=== PATIENT | male | born 1980 | race Caucasian/White ===

== ENCOUNTER 2017-01-30 18:33 | Emergency (ER) | payer OTHER ==
[~2017-01-30] VITALS: Ht 185.4 cm; Wt 99.8 kg
[~2017-01-30 18:33] MED LIST: CARAFATE1 GM/10 ML PO; NOHOMEMEDICATIONS; NORCO 5-325 TA1 EACH PO; PROTONIX40 MG PO
[2017-01-30 21:15] VITALS: BP 141/84
== END 2017-01-30 21:15 | disposition home or self-care (01) ==
LOC: ER 18:33
DX: S60.041A Contusion of right ring finger without damage to nail, initial encounter (principal); D16.11 Benign neoplasm of short bones of right upper limb; F10.99 Alcohol use, unspecified with unspecified alcohol-induced disorder; X58.XXXA Exposure to other specified factors, initial encounter; Y93.54 Activity, bowling; Y92.89 Other specified places as the place of occurrence of the external cause; Y99.8 Other external cause status

== ENCOUNTER 2017-03-27 23:37 | Emergency (ER) | payer OTHER ==
[~2017-03-27] VITALS: Ht 188 cm; Wt 99.8 kg
[2017-03-27] MEDS ORDERED: CLONAZEPAM 0.50.5 M1 PO (23:47)
[2017-03-28] MEDS ORDERED: IBUPROFEN 800800 MG PO (00:42)
[2017-03-28] MEDS ORDERED: NORCO 5-325 TA1 EACH PO (00:42)
[2017-03-28 01:04] VITALS: BP 127/84
== END 2017-03-28 01:06 | disposition home or self-care (01) ==
LOC: ER 23:37
DX: S30.0XXA Contusion of lower back and pelvis, initial encounter (principal); S20.229A Contusion of unspecified back wall of thorax, initial encounter; S50.812A Abrasion of left forearm, initial encounter; F10.99 Alcohol use, unspecified with unspecified alcohol-induced disorder; W10.8XXA Fall (on) (from) other stairs and steps, initial encounter; Y93.89 Activity, other specified; Y92.89 Other specified places as the place of occurrence of the external cause; Y99.8 Other external cause status

== ENCOUNTER 2017-08-04 12:44 | Observation (INO) | payer OTHER ==
[~2017-08-04] VITALS: Ht 188 cm; Wt 98.0 kg
[~2017-08-04 12:44] MED LIST changes: +CLONAZEPAM 0.50.5 M1 PO; +IBUPROFEN 800800 MG PO
[2017-08-04 12:49] VITALS: BP 116/83
[2017-08-04 13:33] LABS: ABSOLUTE NEUTROPHILS 3.5 thou/uL (1.4-8.2); BASOPHILS 0.3 % (0.0-2.0); EOSINOPHILS 3.6 % (0.0-3.0); HEMATOCRIT 38.5 % (42.0-52.0); HEMOGLOBIN 13.6 gm/dL (14.0-18.0); LYMPHOCYTES 24.2 % (24.0-44.0); MCHC 35.2 g/dL (28.0-37.0); MCV 85.1 fL (80.0-100.0); PLATELET COUNT 123 thou/uL (150-400); POLYS 64.9 % (36.0-66.0); RBC 4.53 mil/uL (4.50-6.00); RDW 13.8 % (10.5-14.5); WBC 5.4 thou/uL (4.0-11.0)
[2017-08-04 13:46] LABS: CALCIUM 9.1 mg/dL (8.5-10.1); CREATININE 1.3 mg/dL (0.7-1.3); POTASSIUM 3.6 mmol/L (3.5-5.1)
[2017-08-04 15:19] VITALS: BP 116/83
[2017-08-04] MEDS ORDERED: DEPAKOTE ER500 MG PO (16:41)
[2017-08-04] MEDS ORDERED: NEURONTIN 300300 M1 PO (16:42)
[2017-08-04 16:46] VITALS: BP 126/76
[2017-08-04 19:40] VITALS: BP 121/80
[2017-08-05 02:41] VITALS: BP 119/80
[2017-08-05 05:37] LABS: URINE BILIRUBIN NEGATIVE (Negative); URINE BLOOD NEGATIVE (Negative); URINE CLARITY CLEAR; URINE COLOR YELLOW; URINE GLUCOSE-RANDOM* NEGATIVE (Negative); URINE KETONES NEGATIVE (Negative); URINE LEUKOCYTES NEGATIVE (Negative); URINE NITRITE NEGATIVE (Negative); URINE PROTEIN (DIPSTICK) NEGATIVE (Negative); URINE UROBILINOGEN 0.2 E.U./dl (0.2-1.0)
[2017-08-05 05:45] LABS: AMP/METHAMP Negative (Negative); BARBITURATES Negative (Negative); BENZODIAZEPINES Negative (Negative); COCAINE Negative (Negative); METHADONE Negative (Negative); OPIATES POSITIVE (Negative); PCP Negative (Negative)
[2017-08-05 05:46] LABS: HEMATOCRIT 35.9 % (42.0-52.0); HEMOGLOBIN 12.6 gm/dL (14.0-18.0); MCH 30.3 pg (26.0-34.0); MCHC 35.2 g/dL (28.0-37.0); MCV 86.1 fL (80.0-100.0); RBC 4.18 mil/uL (4.50-6.00); RDW 13.8 % (10.5-14.5); WBC 3.5 thou/uL (4.0-11.0)
[2017-08-05 06:03] LABS: CALCIUM 8.1 mg/dL (8.5-10.1); CREATININE 1.2 mg/dL (0.7-1.3); POTASSIUM 3.6 mmol/L (3.5-5.1)
[2017-08-05 06:32] LABS: SALICYLATE < 2.8 mg/dL (2.8-20.0)
[2017-08-05 08:47] VITALS: BP 119/80
[2017-09-08] MEDS ORDERED: ESCITALOPRAM OXA5 MG PO (13:50)
[2017-09-08] MEDS ORDERED: GENVOYA TABLET1 EACH PO (13:50)
[2017-09-08] MEDS ORDERED: OXCARBAZEPINE300 M1 PO (14:29)
[2018-02-02] MEDS ORDERED: DOXEPIN 25 MG C25 MG PO (17:23)
[2018-02-02] MEDS ORDERED: VITAMIN D2000 UNIT PO (17:24)
[2018-02-02] MEDS ORDERED: CLONAZEPAM 1 MG1 M1 PO (18:50)
[2018-02-02] MEDS ORDERED: TRAMADOL 50 MG50 MG PO (19:22)
[2018-02-02] MEDS ORDERED: NAPROSYN500 MG PO (19:22)
== END 2017-08-05 09:13 | disposition home or self-care (01) ==
LOC: ER 12:44 → EROBS 14:58 → 4S 14:58
PROVIDERS: Emergency Medicine; Hospitalist; Nurse Practitioner Acute Care
DX: R41.82 Altered mental status, unspecified (principal); D33.2 Benign neoplasm of brain, unspecified; Z79.899 Other long term (current) drug therapy; G89.29 Other chronic pain; F32.9 Major depressive disorder, single episode, unspecified
CPT/HCPCS: 10100

== ENCOUNTER 2017-08-30 14:18 | Emergency (ER) | payer OTHER ==
[~2017-08-30] VITALS: Ht 188 cm; Wt 95.7 kg
[~2017-08-30 14:18] MED LIST changes: +DEPAKOTE ER500 MG PO; +NEURONTIN 300300 M1 PO
[2017-08-30] MEDS ORDERED: CLONAZEPAM 1 MG1 M1 PO (15:01)
[2017-08-30 15:06] VITALS: BP 103/54
[2017-09-08] MEDS ORDERED: GENVOYA TABLET1 EACH PO (13:50)
[2017-09-08] MEDS ORDERED: ESCITALOPRAM OXA5 MG PO (13:50)
[2017-09-08] MEDS ORDERED: OXCARBAZEPINE300 M1 PO (14:29)
[2018-02-02] MEDS ORDERED: DOXEPIN 25 MG C25 MG PO (17:23)
[2018-02-02] MEDS ORDERED: VITAMIN D2000 UNIT PO (17:24)
[2018-02-02] MEDS ORDERED: CLONAZEPAM 1 MG1 M1 PO (18:50)
[2018-02-02] MEDS ORDERED: TRAMADOL 50 MG50 MG PO (19:22)
[2018-02-02] MEDS ORDERED: NAPROSYN500 MG PO (19:22)
== END 2017-08-30 15:35 | disposition home or self-care (01) ==
LOC: ER 14:18
DX: G89.29 Other chronic pain (principal); R51 Headache; F41.9 Anxiety disorder, unspecified; F31.9 Bipolar disorder, unspecified; Z91.040 Latex allergy status

== ENCOUNTER → 2017-09-08 | Outpatient (CLI) | payer OTHER ==
[~2017-09-08] VITALS: Ht 188 cm; Wt 101.2 kg
[~2017-09-08] MED LIST changes: +CLONAZEPAM 1 MG1 M1 PO; +DOXEPIN 25 MG C25 MG PO; +ESCITALOPRAM OXA5 MG PO; +GENVOYA TABLET1 EACH PO; +NAPROSYN500 MG PO; +OXCARBAZEPINE300 M1 PO; +TRAMADOL 50 MG50 MG PO; +VITAMIN D2000 UNIT PO
--- NOTE | ~2017-09-08 | HPC ---
[facility] [place] [address] PAIN MANAGEMENT CONSULTATION Name: MASOOD LOPEZ Room #: REG FARHAD RayPaulaHardyPaula#: [id number] Admission: 09/08/17 Attend Phys: Susan Benedict MD Discharge: Date of : 82 Report #: [id number] THIS REPORT FOR: //name// CC: [facility] physician/PCP Susan Waterman MD DATE OF SERVICE: 09/08/2017 PRIMARY CARE PHYSICIAN: The patient states that he does not have a family doctor. FOLLOWUP COMPLAINT: "Pain over my left eye." FOLLOWUP HISTORY: The patient is a 37-year-old gentleman, who has been referred to the pain clinic because of chronic pain and discomfort. He states that this started about 02/2016. He developed a constant discomfort over his left eye. He denies any significant trauma. He states that the pain continues to be problematic. It is in the same area right over the middle portion of his left eye. There is a sensation of pressure, throbbing, and shooting at time. He is not aware of anything that has been significantly helpful in the past. He has tried a number of medications, all the names of which he could not recall. Medication that has been the most effective at this juncture is hydrocodone 5 one to two tablets every 4-6 hours p.r.n. 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 It appears that the lesion is benign. He states that he feels somewhat like a hammer pushing against the spot. He states that he has been seen by several physicians in a number of pain clinics and has had CT, MRI, and spinal tap with no significant pathological findings other than the lesion in the brain area. He is scheduled to undergo a QEEG. The patient saw a neurosurgeon, who told him that he could remove the noncancerous tumor, but because of its location, he could lose his eyesight. The patient is HIV positive, but it is not thought that this is causing his pain. ALLERGIES: No known drug allergies. MEDICATIONS: Escitalopram 5 mg, Elviteg/Reta/Tenofo Ala (Genvoya tablet daily), clonazepam 1 mg t.i.d. as needed for anxiety, and hydrocodone 5/325 one to two tablets p.o. q.4 hours p.r.n. MEDICATIONS USED IN THE PAST: Butrans patch 1 patch weekly. The patient had placed 2 patches on in July. He had some mental confusion secondary to over sedate medication, but was not felt to have any suicidal ideation or intention. He has used doxepin, gabapentin, and Trileptal. PAST MEDICAL HISTORY: HIV positive. 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 SOCIAL HISTORY: He is working as a LODGING FACILITIES MANAGER. The patient just lost his job. He was told that he had missed too many days/hours working. REVIEW OF SYSTEMS: Questionnaire in the chart indicates generally good health; headaches; blurred vision on occasion; ringing in the ears, on the left side, stopped in 2016; lightheadedness; dizziness; depression; insomnia; heat or cold intolerance. LABORATORY DATA: No laboratory values are available at the time of our interview. The patient states he is undergoing a QEEG in the near future. CLINICAL ASSESSMENT: 1. History of osteoarthritis. 2. History of rheumatoid arthritis. 3. Height 6 feet 2 inches, weight 223 pounds, and BMI is 28. 4. Vital signs: Blood pressure 128/87, pulse 85, respiratory rate 16, and room air saturation 96%. 5. Pain intensity today 6, average. 6. Fall risk. The patient has not had any problems with standing and is not a fall risk, has not fallen in the last 3 months. 7. The patient is not on any blood thinner. 8. The patient is not being treated for hypertension. 9. Opioid therapy. The patient has used opioids for some period of time, does not have a contract with our clinic. 10. Risk assessment tool. 11. Functional assessment tool. Pain impact score indicates 36/70 in regard to general activity, mood, walking ability, working, relationships with others, sleep, and enjoyment of life. 12. Recreational drugs. The patient denies use of recreational drugs. Denies use of tobacco. Denies frequent use of alcohol and uses it on special occasions. PHYSICAL EXAMINATION: GENERAL: The patient is a well-developed, well-nourished white male. Appears his stated age. He is alert and oriented x 3. Affect appears appropriate. HEENT: Normocephalic, atraumatic. The patient has some pain and discomfort over the left eye, which is constant and does not "go away". Nasal area is unremarkable. Extraocular eye muscles intact. NECK: Without JVD, masses, or bruits. LUNGS: Clear in the bases bilaterally. HEART: Regular rate. Normal S1 and S2. MUSCULOSKELETAL: Appears normal alignment without scoliosis, kyphosis, or lordosis. Upper extremity strength is judged to be 5/5 for the major muscle [facility] [address] [place] [address] PAIN MANAGEMENT CONSULTATION Name: MASOOD LOPEZ Room #: REG [facility]#: [id number] Admission: 09/08/17 Attend Phys: Susan Benedict MD Discharge: Date of : 82 Report #: [id number] groups. Deep tendon reflexes are +2 at the biceps, +1 triceps, and trace brachioradialis bilaterally. The patient is able to flex approximately 90 degrees, touch his toes. Lumbar extension is performed without significant problems. Left and right lateral bending, left and right lateral rotation were unremarkable. Deep tendon reflexes are +2 at the knees and ankles bilaterally. Muscle strength is judged to be 5/5 for the major muscle groups in the lower extremity. The patient is able to toe walk and heel walk. Palpation over the left supraorbital nerve causes some pain and reproduction of the patient's pain. IMPRESSION: 1. 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 2. Chronic headache pain for about 1-1/2 years. RECOMMENDATIONS: We discussed treatment options with the patient. Examination shows pain and discomfort in the area of the left supraorbital nerve. We discussed the possible options. We will proceed with a trial of Lyrica 75 mg daily and increase this as he is able to tolerate it. We will consider local anesthetic and steroid to the supraorbital nerve to see whether or not this helps to decrease and lessen the pain and discomfort. He will take Lyrica as described. He will return in the pain clinic, at which time injection over the left eye in the area of the supraorbital nerve block will be performed. We would like to thank you for letting us to participate in his care. We hope he continues to improve. <ELECTRONICALLY SIGNED> By: Susan Benedict MD 10/18/17 1415 1351 1749 Susan Benedict MD /nt
[2017-09-08 13:48] VITALS: BP 128/87
== END ==
LOC: PAIN 07:33
DX: H57.12 Ocular pain, left eye (principal); G89.29 Other chronic pain; M19.90 Unspecified osteoarthritis, unspecified site; Z79.891 Long term (current) use of opiate analgesic

== ENCOUNTER → 2017-09-20 | Outpatient (CLI) | payer OTHER ==
[~2017-09-20] VITALS: Ht 188 cm; Wt 101.9 kg
--- NOTE | ~2017-09-20 | HPC ---
[facility] [place] [address] PAIN MANAGEMENT CONSULTATION Name: MASOOD LOPEZ Room #: [id number] Admission: 09/20/17 Attend Phys: Susan Benedict MD Discharge: Date of : 82 Report #: [id number] THIS REPORT FOR: //name// CC: [facility] physician/PCP Susan Waterman MD DATE OF SERVICE: 09/20/2017 CHIEF COMPLAINT: Pain over the left eyebrow. HISTORY OF PRESENT ILLNESS: The patient is a 37-year-old gentleman who has been referred to the pain clinic for evaluation. The patient has a history of pain over the left eye area. Denies any significant trauma. Notes that it has been problematic since 02/2016. He has continued to have the discomfort. He has undergone a number of treatment options. He notes that the pain is throbbing in nature. There is a sensation of pressure that is there at all times. He has had a brain evaluation. Note was made of a lesion in the posterior portion of his brain, which was inoperable. It is felt that this was not the reason for his pain. There was no significant pathology associated with this lesion. He continues to use opioid medications to help maintain pain control. ALLERGIES: No known drug allergies. MEDICATIONS: Have been reviewed and they are escitalopram 5 mg, daily, clonazepam 1 mg t.i.d. as needed for anxiety and hydrocodone 5/325 one to two tablets every 4-6 hours p.r.n. pain. PHYSICAL EXAMINATION: GENERAL: The patient is a well-developed, well-nourished white male. Appears his stated age, in no significant distress. He is alert and oriented x 3. His affect is appropriate. HEENT: Normocephalic, atraumatic. The patient has pain and discomfort over the left supraorbital area and notes pain and discomfort in this area with palpation. Denies any significant problems with extraocular eye movements and muscles. NECK: Without JVD or bruits. LUNGS: Clear to auscultation bilaterally. HEART: Regular rate, normal S1, S2. MUSCULOSKELETAL: Unremarkable without scoliosis, kyphosis or lordosis. Lower extremity is within normal limits. Cranial nerve function 2-12 within normal limits. Deep tendon reflexes in the biceps +2, triceps +1, trace brachial radialis. IMPRESSION: 1. Chronic pain over the left supraorbital nerve distribution. [address] [address] PAIN MANAGEMENT CONSULTATION Name: MASOOD LOPEZ [id number] Admission: 09/20/17 Attend Phys: Susan Benedict MD Discharge: Date of : 82 Report #: [id number] 2. Chronic headaches for about 1-1/2 years. 3. The patient is HIV positive. RECOMMENDATIONS: We discussed treatment options with the patient. The possibility of blocking this nerve with local anesthetic and steroid was discussed. We discussed the treatment options with the patient. Risks and benefits of an injection in the supraorbital area were discussed. They include infection, increased muscle soreness, worsening of pain, eye damage. The patient elects to proceed. PROCEDURE NOTE: The patient was placed in the supine position. A towel was placed above his eyes. Chlorhexidine solution was placed on the supraorbital area. The supraorbital nerve was palpated. The area about 1 inch above his left eyebrow in the area of the supraorbital nerve was tender to palpation and uncomfortable. A 27-gauge needle was then placed in the area of the supraorbital orbital/greater trochlear nerve and a total of 3 mL of 0.5% bupivacaine and 40 mg triamcinolone was injected. The patient tolerated the procedure well. He will follow up in the future as needed. We would like to thank you for letting us participate in his care. We hope he continues to improve. The patient underwent a supraorbital nerve block. <ELECTRONICALLY SIGNED> By: Susan Benedict MD 10/18/17 1424 [id number] Susan Benedict MD /PREETI
[2017-09-20 10:51] VITALS: BP 124/85
== END ==
LOC: PAIN 06:43
DX: M79.2 Neuralgia and neuritis, unspecified (principal); R51 Headache; R41.82 Altered mental status, unspecified; Z79.891 Long term (current) use of opiate analgesic; Z91.040 Latex allergy status; Z79.899 Other long term (current) drug therapy

== ENCOUNTER 2018-08-22 11:40 | Emergency (ER) | payer OTHER ==
[~2018-08-22] VITALS: Ht 188 cm; Wt 99.8 kg
[2018-08-22] MEDS ORDERED: GENVOYA TABLET1 EACH PO (11:49)
[2018-08-22] MEDS ORDERED: PEXEVA40 MG PO (11:51)
[2018-08-22 13:17] LABS: ABSOLUTE NEUTROPHILS 2.8 thou/uL (1.4-8.2); BASOPHILS 0.4 % (0.0-2.0); EOSINOPHILS 2.5 % (0.0-3.0); HEMATOCRIT 40.4 % (42.0-52.0); HEMOGLOBIN 14.2 gm/dL (14.0-18.0); LYMPHOCYTES 23.3 % (24.0-44.0); MCH 31.5 pg (26.0-34.0); MCHC 35.2 g/dL (28.0-37.0); MCV 89.6 fL (80.0-100.0); MONOCYTES 8.5 % (1.0-8.0); PLATELET COUNT 148 thou/uL (150-400); POLYS 65.3 % (36.0-66.0); RBC 4.51 mil/uL (4.50-6.00); RDW 15.2 % (10.5-14.5); WBC 4.3 thou/uL (4.0-11.0)
[2018-08-22 13:25] LABS: CALCIUM 9.2 mg/dL (8.5-10.1); CREATININE 1.3 mg/dL (0.7-1.3); POTASSIUM 4.2 mmol/L (3.5-5.1)
[2018-08-22 13:31] LABS: ALBUMIN 4.2 g/dL (3.4-5.0); TOTAL BILIRUBIN 0.7 mg/dL (<0.1-1.0); TOTAL PROTEIN 7.5 g/dL (6.4-8.2)
[2018-08-22] MEDS ORDERED: FLONASE 0.05%50 MCG NASAL (13:40)
[2018-08-22] MEDS ORDERED: TRUVADA1 EAC1 PO (13:40)
[2018-08-22] MEDS ORDERED: REMERON15 MG PO (13:41)
[2018-08-22 15:00] VITALS: BP 132/80
== END 2018-08-22 15:00 | disposition home or self-care (01) ==
LOC: ER 11:40
PROVIDERS: Emergency Medicine
DX: J04.0 Acute laryngitis (principal); R13.10 Dysphagia, unspecified; Z91.040 Latex allergy status; Z88.6 Allergy status to analgesic agent

== ENCOUNTER 2018-11-24 16:43 | Emergency (ER) | payer OTHER ==
[~2018-11-24] VITALS: Ht 188 cm; Wt 104.3 kg
[~2018-11-24 16:43] MED LIST changes: +FLONASE 0.05%50 MCG NASAL; +PEXEVA40 MG PO; +REMERON15 MG PO; +TRUVADA1 EAC1 PO
[2018-11-24 19:01] VITALS: BP 123/74
== END 2018-11-24 18:50 | disposition home or self-care (01) ==
LOC: ER 16:43
DX: G89.18 Other acute postprocedural pain (principal); Z98.890 Other specified postprocedural states; Z21 Asymptomatic human immunodeficiency virus [HIV] infection status; Z88.5 Allergy status to narcotic agent; Z91.040 Latex allergy status

== ENCOUNTER 2018-11-30 08:31 | Emergency (ER) | payer OTHER ==
[~2018-11-30] VITALS: Ht 188 cm; Wt 104.3 kg
[2018-11-30] MEDS ORDERED: ZANTAC 150MG T150 MG PO (08:58)
[2018-11-30] MEDS ORDERED: GENVOYA TABLET1 EACH PO (08:59)
[2018-11-30 09:53] VITALS: BP 131/81
[2018-11-30] MEDS ORDERED: NORCO 5-325 TA1 EACH PO (09:55)
[2018-11-30] MEDS ORDERED: KEFLEX500 M1 PO (09:55)
== END 2018-11-30 10:00 | disposition home or self-care (01) ==
LOC: ER 08:31
DX: T81.30XA Disruption of wound, unspecified, initial encounter (principal); L03.011 Cellulitis of right finger; Z91.040 Latex allergy status; Z88.5 Allergy status to narcotic agent; Z21 Asymptomatic human immunodeficiency virus [HIV] infection status; Y84.8 Other medical procedures as the cause of abnormal reaction of the patient, or of later complication, without mention of misadventure at the time of the procedure; Y92.89 Other specified places as the place of occurrence of the external cause

== ENCOUNTER 2019-01-31 16:22 | Inpatient (IN) | payer OTHER ==
[~2019-01-31] VITALS: Ht 188 cm; Wt 114.8 kg
[~2019-01-31 16:22] MED LIST changes: +KEFLEX500 M1 PO; +ZANTAC 150MG T150 MG PO
[2019-01-31 16:23] VITALS: BP 133/94
[2019-01-31 16:42] LABS: URINE BILIRUBIN NEGATIVE (Negative); URINE BLOOD NEGATIVE (Negative); URINE CLARITY CLEAR; URINE COLOR YELLOW; URINE GLUCOSE-RANDOM* NEGATIVE (Negative); URINE KETONES NEGATIVE (Negative); URINE LEUKOCYTES-REFLEX NEGATIVE (Negative); URINE NITRITE-REFLEX NEGATIVE (Negative); URINE PROTEIN (DIPSTICK) NEGATIVE (Negative); URINE SPECIFIC GRAVITY 1.025 (1.005-1.035); URINE UROBILINOGEN 0.2 E.U./dl (0.2-1.0)
[2019-01-31 17:00] LABS: ABSOLUTE NEUTROPHILS 2.8 thou/uL (1.4-8.2); BASOPHILS 0.6 % (0.0-2.0); EOSINOPHILS 1.6 % (0.0-3.0); HEMATOCRIT 37.3 % (42.0-52.0); HEMOGLOBIN 12.8 gm/dL (14.0-18.0); LYMPHOCYTES 20.2 % (24.0-44.0); MCHC 34.2 g/dL (28.0-37.0); MCV 90.6 fL (80.0-100.0); MONOCYTES 7.4 % (1.0-8.0); PLATELET COUNT 129 thou/uL (150-400); POLYS 70.2 % (36.0-66.0); RBC 4.11 mil/uL (4.50-6.00); RDW 16.1 % (10.5-14.5); WBC 4.1 thou/uL (4.0-11.0)
[2019-01-31 17:09] LABS: CALCIUM 8.9 mg/dL (8.5-10.1); CREATININE 1.2 mg/dL (0.7-1.3); POTASSIUM 3.9 mmol/L (3.5-5.1)
[2019-01-31 17:15] LABS: ALBUMIN 3.6 g/dL (3.4-5.0); TOTAL BILIRUBIN 0.5 mg/dL (<0.1-1.0); TOTAL PROTEIN 7.2 g/dL (6.4-8.2)
[2019-01-31 19:34] VITALS: BP 129/79
[2019-01-31 19:40] VITALS: BP 125/73
[2019-01-31 20:06] VITALS: BP 137/90
[2019-01-31] MEDS ORDERED: VALIUM5 MG PO (20:24)
[2019-01-31] MEDS ORDERED: PEPCID20 MG PO (20:27)
[2019-01-31] MEDS ORDERED: VITAMIN D5000 UNIT PO (20:28)
[2019-01-31] MEDS ORDERED: PROTONIX40 M1 PO (20:30)
[2019-01-31] MEDS ORDERED: PANTOPRAZOLE SO40 M1 PO (20:31)
[2019-01-31] MEDS ORDERED: CARAFATE 1 GM TA1 G1 PO (20:37)
[2019-01-31] MEDS ORDERED: CARAFATE1 GM/10 ML PO (20:40)
--- NOTE | 2019-02-01 04:31 | NUR ---
Received pt from ED at 1845. Pt resting in bed. VSS. AOX4. Up at dennis. Having RUQ abdmn pain called ADMINISTRATIVE RESIDENT who authorized fentanyl Q6 PRN. Pt has been NPO since midnight for surgery today. Med reconciliation complete. No identified needs at the moment. Will continue to monitor.
[2019-02-01 04:49] VITALS: BP 117/79
[2019-02-01 08:00] VITALS: BP 138/77
--- NOTE | 2019-02-01 11:47 | NUR ---
TOWARDS POC PT A/O X4, VSS, AFEBRILE. PAIN MANAGED BY MEDS. ANTICIPATING SURGERY TODAY,P PT IS AWARE. NO CONCERNS VOICED. WILL CONTINUE TO MONITOR.
[2019-02-01 19:00] VITALS: BP 142/81
[2019-02-01 22:30] VITALS: BP 132/74
[2019-02-01 23:01] VITALS: BP 128/75
[2019-02-01 23:54] VITALS: BP 125/79
--- NOTE | 2019-02-02 02:00 | NUR ---
PATIENT AOX4 MAKES NEEDS KNOWN. PAIN CONTROLLED THIS SHIFT. PATIENT HAS 4 LAPSITE, ALL 4 LAPSITES ARE ON DERMABOND, NO REDNESS OR S/S INFECTION NOTED THIS SHIFT. PATIENT AMBULATED SLOWLY WITH STEADY GAITS IN THE UNIT. SCD ON.PATIENT IN BED ASLEEP AT THIS TIME BREATHING REGULAR AND UNLABOURED.
[2019-02-02 04:12] VITALS: BP 117/71
[2019-02-02 06:05] LABS: HEMATOCRIT 37.1 % (42.0-52.0); HEMOGLOBIN 12.6 gm/dL (14.0-18.0); MCH 31.2 pg (26.0-34.0); MCV 91.7 fL (80.0-100.0); RBC 4.05 mil/uL (4.50-6.00); WBC 5.6 thou/uL (4.0-11.0)
[2019-02-02 06:16] LABS: CALCIUM 8.6 mg/dL (8.5-10.1); CREATININE 1.3 mg/dL (0.7-1.3); POTASSIUM 4.2 mmol/L (3.5-5.1)
[2019-02-02 07:44] VITALS: BP 120/84
--- NOTE | 2019-02-02 14:20 | NUR ---
Received awake on bed. Due medications given as prescribed. With IV of NS at 100cc/hr infusing well at R AC. Pt complains of pain, due pain medication given as prescibed. A+Ox4. Up ad dennis. Vital signs stable. On room air. Pt complained that pain not relieved by prescribed pain medication, asking if he can be prescribed for additional meds; called Dr. Jorge's office- Dr. Jorge called back and informed him that pt is on Fentanyl IV q4 but still in pain, As per Dr. Payne may have percocet 5/325mg PO, q6 PRN, pt for discharge today. Verified with Dr Jorge if he still needs to see pt prior to d/c- will just see pt on follow up, to inform hospitalist re: discharge. Sent Dr Nirali romero re: pt ok for d/c from surgery, a/w discharge orders. a/w reply from Dr Campoverde- asked US to call in Drs office re: discharge orders.
[2019-02-02] MEDS ORDERED: PERCOCET PO (14:59)
[2019-02-02 15:05] VITALS: BP 127/77
[2019-02-02 15:07] VITALS: BP 120/84
--- NOTE | 2019-02-05 11:06 | PATH ---
[facility] [address] [place] [address] PATHOLOGY RPT PROCEDURE Name: MERVAT LOPEZ Room #: 454-P [facility] IN M.R.#: [id number] ������������������ Admission: 01/31/19 ������������������ Date of : 82 Discharge: 02/02/19 Report #: [id number] Path Case #: [id number] [facility] Accession Number: [id number] . 01 Material submitted: . gallbladder - GALLBLADDER . 01 Clinical history: . Gallstones. . 02 Diagnosis: Gallbladder, cholecystectomy: - Marked acute cholecystitis associated with surface ulceration and cholesterol clefts. - Cholelithiasis. (IUV:cellulose insulation helper; 02/04/2019) MBR/02/04/2019 . 02 Electronically signed: . Kell Buenrostro MD, Pathologist NPI- [id number] . 01 Gross description: . Received in formalin labeled "Luis, Mervat, gallbladder" is a previously opened cholecystectomy specimen measuring 6.5 x 2.7 x 2.7 cm. The serosa is pink-power and smooth with a full-thickness defect in the hepatic bed measuring 1.5 x 1.4 cm. The specimen is opened to reveal power brown ragged and hemorrhagic mucosa without polyps or masses. The average wall thickness is 0.2-0.3 cm. Calculi are present, which are yellow-brown and fragmented, measuring in aggregate 3.6 x 3.2 x 1.5 cm and ranging from 0.8-1.6 cm in greatest dimension. Carding Doubler sections of the fundus and body and the cystic duct margin are submitted in A1. ([place]; 02/03/2019) SYC/SYC . 02 Pathologist provided ICD-10: K80.00 . 02 CPT . 880253 Specimen Comment: A courtesy copy of this report has been sent to Specimen Comment: [phone], , . Specimen Comment: Report sent to ,DR SCRUGGS / DR SULLIVAN Performed at: [address] [facility] [id number] MD Miguel Leonardo MD Phone: [phone] Performed at: [address] [address] PATHOLOGY RPT PROCEDURE Name: MERVAT LOPEZ Room #: 454-P [facility] IN M.R.#: [id number] ������������������ Admission: 01/31/19 ������������������ Date of : 82 Discharge: 02/02/19 Report #: [id number] Path Case #: [id number] [facility] [place] [address], [place], [place] [id number] MD Kell Buenrostro MD Phone: [phone]
[2019-02-07] MEDS ORDERED: ZOFRAN ODT4 MG PO (18:10)
--- NOTE | 2019-02-22 12:34 | O ---
[facility] [place] [address] OPERATIVE REPORT Name: MASOOD LOPEZ Room #: 454-P [facility]#: [id number] Admission: 01/31/19 ������������������ Attend Phys: Timoteo Gates MD Discharge: 02/02/19 ������������������ Date of : 82 Report #: [id number] THIS REPORT FOR: //name// CC: [facility] physician/PCP Timoteo BARILLAS PCP DATE OF SERVICE: 02/01/2019 PREOPERATIVE DIAGNOSIS: Symptomatic cholelithiasis. POSTOPERATIVE DIAGNOSIS: Symptomatic cholelithiasis. OPERATIVE PROCEDURE DONE: Laparoscopic cholecystectomy. OPERATING SURGEON: Orlando Nye MD INDICATIONS FOR THE PROCEDURE: The patient is a 38-year-old gentleman who presented with complaints of one-day history of right upper quadrant pain. Clinical exam and ultrasound showed features of cholelithiasis. The patient was advised laparoscopic cholecystectomy. DESCRIPTION OF PROCEDURE: After explaining to the patient in detail and informed consent was obtained, the patient was identified in the preoperative holding area. The patient was transferred to the operating room and was placed in supine position. Sequential compressive devices were placed for DVT prophylaxis. Preoperative antibiotics were given. After induction of anesthesia, the abdomen was prepped and draped in a sterile fashion. Through a right upper quadrant 1 cm incision and using Optiview technique, peritoneal cavity was entered and pneumoperitoneum was created. Under direct vision, another 5 mm trocar was placed through a supraumbilical incision and another 5 mm trocar was placed in the epigastrium and one in the right lateral subcostal region. Upon initial inspection, the gallbladder appeared normal. The gallbladder was then retracted and the peritoneal reflections along the neck of the gallbladder were gently dissected off. Cystic duct was identified and isolated from the surrounding structures. Cystic artery was identified and was isolated from the surrounding structures. Cystic duct was then doubly clipped proximally and single clip applied distally and was then divided. Cystic artery also was then divided in a similar fashion. The gallbladder was gently dissected off the liver bed using hook electrocautery. Absolute hemostasis was achieved. Thorough saline irrigation was given. The gallbladder was retrieved using an EndoCatch through the lateral most incision. Incision was then closed with 4-0 Monocryl. Dermabond was applied. The patient was stable at the end of the procedure. The patient was awoken up from anesthesia and was transferred to the recovery room in stable condition. [address] [address] OPERATIVE REPORT Name: MASOOD LOPEZ Room #: 454-P [facility].#: [id number] Admission: 01/31/19 ������������������ Attend Phys: Timoteo Gates MD Discharge: 02/02/19 ������������������ Date of : 82 Report #: [id number] ESTIMATED BLOOD LOSS: 10 mL. CONDITION OF THE PATIENT: Stable. FLUIDS GIVEN: Per anesthesia notes. SPECIMENS SENT: Gallbladder. COMPLICATIONS: None. ANESTHESIA: General anesthesia. ��������������������������������������������� <ELECTRONICALLY SIGNED> ���������������������������������������� By: Orlando Jorge MD ��������������������������������������������� 02/22/19 1234 0832 0857 MD angel Alfaro
== END 2019-02-02 16:34 | disposition home or self-care (01) | DRG 419 ==
LOC: ER 16:22 → EROBS 18:56 → 4W 18:56
PROVIDERS: Emergency Medicine; Surgery; ADMIT Hospitalist
PROC: 0FT44ZZ Resection of Gallbladder, Percutaneous Endoscopic Approach (ICD-10-PCS; principal; 2019-02-01)
DX: K80.20 Calculus of gallbladder without cholecystitis without obstruction (principal); F41.9 Anxiety disorder, unspecified; F32.9 Major depressive disorder, single episode, unspecified; F80.82 Social pragmatic communication disorder; Z21 Asymptomatic human immunodeficiency virus [HIV] infection status; Z79.899 Other long term (current) drug therapy; Z88.6 Allergy status to analgesic agent; Z91.040 Latex allergy status; Z82.49 Family history of ischemic heart disease and other diseases of the circulatory system
CPT/HCPCS: 10040; 10045; 50010; 50101; 50411; 50555; 51489; 52265; 52266; 53307; 54022; 54118; 55245; 56462; 56525; 56526; 57257; 62110; 62900; 70005

== ENCOUNTER 2019-02-18 17:25 | Emergency (ER) | payer OTHER ==
[~2019-02-18] VITALS: Ht 188 cm; Wt 108.9 kg
[~2019-02-18 17:25] MED LIST changes: +CARAFATE 1 GM TA1 G1 PO; +PANTOPRAZOLE SO40 M1 PO; +PEPCID20 MG PO; +PERCOCET PO; +PROTONIX40 M1 PO; +VALIUM5 MG PO; +VITAMIN D5000 UNIT PO; +ZOFRAN ODT4 MG PO
[2019-02-18 17:55] LABS: ABSOLUTE NEUTROPHILS 3.1 thou/uL (1.4-8.2); BASOPHILS 0.4 % (0.0-2.0); EOSINOPHILS 1.9 % (0.0-3.0); HEMATOCRIT 36.9 % (42.0-52.0); HEMOGLOBIN 12.7 gm/dL (14.0-18.0); LYMPHOCYTES 21.8 % (24.0-44.0); MCHC 34.4 g/dL (28.0-37.0); MCV 90.1 fL (80.0-100.0); PLATELET COUNT 165 thou/uL (150-400); POLYS 68.9 % (36.0-66.0); WBC 4.5 thou/uL (4.0-11.0)
[2019-02-18 17:57] LABS: CALCIUM 8.8 mg/dL (8.5-10.1); CREATININE 1.3 mg/dL (0.7-1.3); POTASSIUM 3.1 mmol/L (3.5-5.1)
[2019-02-18 18:03] LABS: ALBUMIN 3.8 g/dL (3.4-5.0); TOTAL BILIRUBIN 0.7 mg/dL (<0.1-1.0); TOTAL PROTEIN 7.5 g/dL (6.4-8.2)
[2019-02-18 18:54] LABS: URINE BILIRUBIN NEGATIVE (Negative); URINE BLOOD NEGATIVE (Negative); URINE CLARITY CLEAR; URINE COLOR YELLOW; URINE GLUCOSE-RANDOM* NEGATIVE (Negative); URINE KETONES NEGATIVE (Negative); URINE LEUKOCYTES-REFLEX NEGATIVE (Negative); URINE NITRITE-REFLEX NEGATIVE (Negative); URINE PROTEIN (DIPSTICK) NEGATIVE (Negative); URINE SPECIFIC GRAVITY 1.025 (1.005-1.035); URINE UROBILINOGEN 0.2 E.U./dl (0.2-1.0)
[2019-02-18] MEDS ORDERED: HYDROCODON-ACE1 EAC7 PO (20:19)
[2019-02-18 21:23] VITALS: BP 109/64
== END 2019-02-18 21:24 | disposition home or self-care (01) ==
LOC: ER 17:25
PROVIDERS: Emergency Medicine
DX: G89.18 Other acute postprocedural pain (principal); Z90.49 Acquired absence of other specified parts of digestive tract; F41.9 Anxiety disorder, unspecified; F32.9 Major depressive disorder, single episode, unspecified; Z91.040 Latex allergy status; R19.7 Diarrhea, unspecified

== ENCOUNTER 2019-03-06 18:49 | Emergency (ER) | payer OTHER ==
[~2019-03-06] VITALS: Ht 188 cm; Wt 104.3 kg
[~2019-03-06 18:49] MED LIST changes: +HYDROCODON-ACE1 EAC7 PO
[2019-03-06 19:07] LABS: URINE BILIRUBIN NEGATIVE (Negative); URINE BLOOD NEGATIVE (Negative); URINE CLARITY CLEAR; URINE COLOR YELLOW; URINE GLUCOSE-RANDOM* NEGATIVE (Negative); URINE KETONES TRACE (Negative); URINE LEUKOCYTES-REFLEX NEGATIVE (Negative); URINE NITRITE-REFLEX NEGATIVE (Negative); URINE PROTEIN (DIPSTICK) TRACE (Negative); URINE UROBILINOGEN 0.2 E.U./dl (0.2-1.0)
[2019-03-06 21:03] LABS: ABSOLUTE NEUTROPHILS 2.1 thou/uL (1.4-8.2); BASOPHILS 0.4 % (0.0-2.0); EOSINOPHILS 3.4 % (0.0-3.0); HEMATOCRIT 36.4 % (42.0-52.0); HEMOGLOBIN 12.4 gm/dL (14.0-18.0); LYMPHOCYTES 21.5 % (24.0-44.0); MCH 30.7 pg (26.0-34.0); MCHC 34.1 g/dL (28.0-37.0); MONOCYTES 8.1 % (1.0-8.0); PLATELET COUNT 115 thou/uL (150-400); POLYS 66.6 % (36.0-66.0); RBC 4.05 mil/uL (4.50-6.00); RDW 15.1 % (10.5-14.5); WBC 3.1 thou/uL (4.0-11.0)
[2019-03-06 21:20] LABS: CREATININE 1.2 mg/dL (0.7-1.3); POTASSIUM 3.4 mmol/L (3.5-5.1)
[2019-03-06 21:25] LABS: ALBUMIN 3.8 g/dL (3.4-5.0); TOTAL BILIRUBIN 0.3 mg/dL (<0.1-1.0)
[2019-03-06] MEDS ORDERED: TRAMADOL 50 MG50 MG PO (21:52)
[2019-03-06] MEDS ORDERED: NAPROSYN500 MG PO (21:52)
[2019-03-06 22:35] VITALS: BP 110/73
== END 2019-03-06 22:35 | disposition home or self-care (01) ==
LOC: ER 18:49
PROVIDERS: Emergency Medicine
DX: G89.18 Other acute postprocedural pain (principal); D61.818 Other pancytopenia; R10.31 Right lower quadrant pain; Z91.040 Latex allergy status; Z79.899 Other long term (current) drug therapy; Z98.890 Other specified postprocedural states

== ENCOUNTER 2019-03-16 19:54 | Emergency (ER) | payer OTHER ==
[~2019-03-16] VITALS: Ht 188 cm; Wt 104.3 kg
[2019-03-16 20:35] LABS: ABSOLUTE NEUTROPHILS 6.8 thou/uL (1.4-8.2); BASOPHILS 0.1 % (0.0-2.0); HEMATOCRIT 38.4 % (42.0-52.0); HEMOGLOBIN 13.2 gm/dL (14.0-18.0); LYMPHOCYTES 4.7 % (24.0-44.0); MCH 30.8 pg (26.0-34.0); MCHC 34.5 g/dL (28.0-37.0); MCV 89.5 fL (80.0-100.0); MONOCYTES 2.6 % (1.0-8.0); PLATELET COUNT 154 thou/uL (150-400); POLYS 92.6 % (36.0-66.0); RBC 4.29 mil/uL (4.50-6.00); RDW 14.4 % (10.5-14.5); WBC 7.3 thou/uL (4.0-11.0)
[2019-03-16 20:48] LABS: CALCIUM 9.3 mg/dL (8.5-10.1); CREATININE 1.1 mg/dL (0.7-1.3); POTASSIUM 3.6 mmol/L (3.5-5.1)
[2019-03-16 21:40] VITALS: BP 120/75
== END 2019-03-16 21:44 | disposition home or self-care (01) ==
LOC: ER 19:54
PROVIDERS: Emergency Medicine
DX: M54.6 Pain in thoracic spine (principal); B20 Human immunodeficiency virus [HIV] disease; F32.9 Major depressive disorder, single episode, unspecified; F41.9 Anxiety disorder, unspecified; Z91.040 Latex allergy status

== ENCOUNTER 2019-03-21 12:42 | Emergency (ER) | payer OTHER ==
[~2019-03-21] VITALS: Ht 188 cm; Wt 104.3 kg
[2019-03-21 12:46] VITALS: BP 117/85
== END 2019-03-21 13:39 | disposition home or self-care (01) ==
LOC: ER 12:42
DX: M54.6 Pain in thoracic spine (principal); Z91.040 Latex allergy status; Z79.899 Other long term (current) drug therapy

== ENCOUNTER 2019-03-29 19:55 | Emergency (ER) | payer OTHER ==
[~2019-03-29] VITALS: Ht 188 cm; Wt 104.3 kg
[2019-03-29] MEDS ORDERED: FLEXERIL PO (20:01)
[2019-03-29 20:51] LABS: WBC 9.2 thou/uL (4.0-11.0)
[2019-03-29 20:52] LABS: HEMATOCRIT 42.3 % (42.0-52.0); HEMOGLOBIN 14.5 gm/dL (14.0-18.0); MCH 30.9 pg (26.0-34.0); MCHC 34.4 g/dL (28.0-37.0); MCV 89.8 fL (80.0-100.0); RBC 4.7 mil/uL (4.50-6.00); RDW 14.6 % (10.5-14.5)
[2019-03-29 20:58] LABS: CALCIUM 9.1 mg/dL (8.5-10.1); CREATININE 1.3 mg/dL (0.7-1.3)
[2019-03-29] MEDS ORDERED: ACETAMINOPHEN-1 EAC1 PO (21:46)
[2019-03-29 22:01] VITALS: BP 135/87
== END 2019-03-29 20:21 | disposition home or self-care (01) ==
LOC: ER 19:55
PROVIDERS: Emergency Medicine
DX: K92.2 Gastrointestinal hemorrhage, unspecified (principal); M54.6 Pain in thoracic spine; B20 Human immunodeficiency virus [HIV] disease; F41.9 Anxiety disorder, unspecified; F32.9 Major depressive disorder, single episode, unspecified; Z88.6 Allergy status to analgesic agent; Z91.040 Latex allergy status

== ENCOUNTER 2019-04-17 14:51 | Emergency (ER) | payer OTHER ==
[~2019-04-17] VITALS: Ht 188 cm; Wt 108.9 kg
[~2019-04-17 14:51] MED LIST changes: +ACETAMINOPHEN-1 EAC1 PO; +FLEXERIL PO
[2019-04-17 18:46] LABS: ABSOLUTE NEUTROPHILS 7.1 thou/uL (1.4-8.2); BASOPHILS 0.2 % (0.0-2.0); EOSINOPHILS 0.5 % (0.0-3.0); HEMATOCRIT 44.7 % (42.0-52.0); HEMOGLOBIN 15.1 gm/dL (14.0-18.0); LYMPHOCYTES 13.7 % (24.0-44.0); MCH 30.7 pg (26.0-34.0); MCHC 33.9 g/dL (28.0-37.0); MCV 90.5 fL (80.0-100.0); MONOCYTES 6.6 % (1.0-8.0); PLATELET COUNT 195 thou/uL (150-400); RBC 4.94 mil/uL (4.50-6.00); RDW 14.8 % (10.5-14.5)
[2019-04-17 18:51] LABS: CALCIUM 9.9 mg/dL (8.5-10.1); CREATININE 1.1 mg/dL (0.7-1.3); POTASSIUM 3.8 mmol/L (3.5-5.1)
[2019-04-17 18:54] LABS: ALBUMIN 4.1 g/dL (3.4-5.0); TOTAL BILIRUBIN 0.6 mg/dL (<0.1-1.0); TOTAL PROTEIN 7.5 g/dL (6.4-8.2)
[2019-04-17 19:07] LABS: URINE BILIRUBIN NEGATIVE (Negative); URINE BLOOD NEGATIVE (Negative); URINE CLARITY CLEAR; URINE COLOR YELLOW; URINE GLUCOSE-RANDOM* NEGATIVE (Negative); URINE KETONES NEGATIVE (Negative); URINE LEUKOCYTES-REFLEX NEGATIVE (Negative); URINE NITRITE-REFLEX NEGATIVE (Negative); URINE PROTEIN (DIPSTICK) NEGATIVE (Negative); URINE UROBILINOGEN 0.2 E.U./dl (0.2-1.0)
[2019-04-17] MEDS ORDERED: BUTALB-APAP-CA1 EACH PO (21:46)
[2019-04-17] MEDS ORDERED: BENADRYL25 MG PO (21:46)
[2019-04-17 21:59] VITALS: BP 109/59
--- NOTE | 2019-04-18 08:59 | EKG ---
[place] [address] [facility] [employer] [place] [address] ELECTROCARDIOGRAM REPORT Name: MASOOD LOPEZ [facility] [id number] ������������������ Admission: 04/17/19 ������������������ Attend Phys: Discharge: 04/17/19 ������������������ Date of : 82 Report #: [id number] ����������������������������������������������������������������� [id number] THIS REPORT FOR: //name// [facility] ED Test Date: 2019-04-17 Test Time: 19:41:44 Pat Name: MASOOD LOPEZ Department: Room: Gender: Employee Counselor: SABINA : 1980 Requested By: Wade Venegas Order Number: [id number] MD: Andrzej Akhtar Measurements Intervals [place] Rate: 79 P: 5 [place]: 148 QRS: 6 QRSD: 98 T: 19 QT: 379 QTc: 435 Interpretive Statements Sinus rhythm Poor R wave progression Compared to ECG 02/07/2019 16:52:24 No significant change was found Electronically Signed On 04-18-2019 8:58:42 CDT by Andrzej Akhtar [email or web address] ��������������������������������������������� <ELECTRONICALLY SIGNED> ���������������������������������������� By: Andrzej Akhtar MD, [facility] ��������������������������������������������� 04/18/19 0858 194 40 Andrzej Akhtar MD, FACC /EPI
== END 2019-04-17 22:00 ==
LOC: ER 14:51
PROVIDERS: Emergency Medicine
DX: G43.909 Migraine, unspecified, not intractable, without status migrainosus (principal); R11.10 Vomiting, unspecified; F41.9 Anxiety disorder, unspecified; F32.9 Major depressive disorder, single episode, unspecified; Z21 Asymptomatic human immunodeficiency virus [HIV] infection status; Z86.018 Personal history of other benign neoplasm; Z91.040 Latex allergy status; Z88.5 Allergy status to narcotic agent

== ENCOUNTER 2019-05-27 13:23 | Emergency (ER) | payer OTHER ==
[~2019-05-27] VITALS: Ht 188 cm; Wt 108.9 kg
[~2019-05-27 13:23] MED LIST changes: +BENADRYL25 MG PO; +BUTALB-APAP-CA1 EACH PO
[2019-05-27] MEDS ORDERED: LUNESTA1 MG PO (13:29)
[2019-05-27 14:30] VITALS: BP 134/96
== END 2019-05-27 14:30 | disposition home or self-care (01) ==
LOC: ER 13:23
DX: J02.9 Acute pharyngitis, unspecified (principal); F41.9 Anxiety disorder, unspecified; F32.9 Major depressive disorder, single episode, unspecified; Z90.49 Acquired absence of other specified parts of digestive tract; Z21 Asymptomatic human immunodeficiency virus [HIV] infection status; Z88.5 Allergy status to narcotic agent; Z91.041 Radiographic dye allergy status

== ENCOUNTER 2019-07-17 19:37 | Emergency (ER) | payer OTHER ==
[~2019-07-17] VITALS: Ht 188 cm; Wt 108.9 kg
[~2019-07-17 19:37] MED LIST changes: +LUNESTA1 MG PO
[2019-07-17 19:41] VITALS: BP 124/82
== END 2019-07-17 20:48 | disposition home or self-care (01) ==
LOC: ER 19:37
DX: M72.2 Plantar fascial fibromatosis (principal); Z91.040 Latex allergy status; Z88.5 Allergy status to narcotic agent; Z79.899 Other long term (current) drug therapy; Z90.49 Acquired absence of other specified parts of digestive tract

== ENCOUNTER 2020-02-04 21:09 | Emergency (ER) | payer OTHER ==
[~2020-02-04] VITALS: Ht 188 cm; Wt 104.3 kg
[2020-02-04 21:49] LABS: ABSOLUTE NEUTROPHILS 3.4 thou/uL (1.4-8.2); BASOPHILS 0.6 % (0.0-2.0); EOSINOPHILS 4.6 % (0.0-3.0); HEMATOCRIT 40.6 % (42.0-52.0); HEMOGLOBIN 13.8 gm/dL (14.0-18.0); LYMPHOCYTES 24.3 % (24.0-44.0); MCH 29.2 pg (26.0-34.0); MCHC 33.9 g/dL (28.0-37.0); MCV 86.3 fL (80.0-100.0); MONOCYTES 6.4 % (1.0-8.0); PLATELET COUNT 166 thou/uL (150-400); POLYS 64.1 % (36.0-66.0); RBC 4.71 mil/uL (4.50-6.00); RDW 14.9 % (10.5-14.5); WBC 5.3 thou/uL (4.0-11.0)
[2020-02-04 21:57] LABS: ANION GAP 9 mmol/L (7-16); BUN 13 mg/dL (7-18); CALCIUM 8.7 mg/dL (8.5-10.1); CHLORIDE 105 mmol/L (98-107); CO2 26 mmol/L (21-32); CREATININE 1.3 mg/dL (0.7-1.3); GLUCOSE 115 mg/dL (74-106); POTASSIUM 3.4 mmol/L (3.5-5.1); SODIUM 140 mmol/L (136-145)
[2020-02-04 22:07] LABS: ALBUMIN 3.6 g/dL (3.4-5.0); SGOT 31 U/L (15-37); SGPT 58 U/L (30-65); TOTAL BILIRUBIN 0.3 mg/dL (0.2-1.0); TOTAL PROTEIN 7.1 g/dL (6.4-8.2); TROPONIN-I <0.06 ng/mL (<0.06)
[2020-02-05] MEDS ORDERED: NORCO 5-325 TA1 EAC1 PO (00:22)
[2020-02-05] MEDS ORDERED: TESSALON PERLE100 M1 PO ×2 (00:22→00:27)
[2020-02-05 00:41] VITALS: BP 119/62
--- NOTE | 2020-02-05 08:11 | EKG ---
[facility] [place] [address] ELECTROCARDIOGRAM REPORT Name: MASOOD LOPEZ Room #: DEP [facility] [id number] Admission: 02/04/20 Attend Phys: Discharge: 02/05/20 Date of : 82 Report #: [id number] THIS REPORT FOR: cc: TREMAINE Mott family physician/PCP TREMAINE - [place] family physician/PCP Andrzej Akhtar MD [facility] THIS REPORT FOR: //name// [facility] ED Test Date: 2020-02-04 Test Time: 21:15:12 Pat Name: MASOOD LOPEZ Department: Room: Gender: Embalmer/Funeral Director: : 1980 Requested By: Nga Hurtado Order Number: [id number] MD: Andrzej Akhtar Measurements Intervals [place] Rate: 85 P: 17 [place]: 154 QRS: -2 QRSD: 99 T: 70 QT: 371 QTc: 442 Interpretive Statements Sinus rhythm Borderline repolarization abnormality Baseline wander in lead(s) V1 Compared to ECG 04/17/2019 19:41:44 Poor R-wave progression no longer present Electronically Signed On 02-05-2020 8:10:28 CDT by Andrzej Akhtar [email or web address] <ELECTRONICALLY SIGNED> By: Andrzej Akhtar MD, [facility] 02/05/20 0810 14 14 Andrzej Akhtar MD, [facility] /EPI
== END 2020-02-05 00:42 | disposition home or self-care (01) ==
LOC: ER 21:09
PROVIDERS: Student in an Organized Health Care Education/Training Program
DX: R05 Cough (principal); Z20.828 Contact with and (suspected) exposure to other viral communicable diseases; R07.89 Other chest pain; R06.02 Shortness of breath; F32.9 Major depressive disorder, single episode, unspecified; F41.9 Anxiety disorder, unspecified; B20 Human immunodeficiency virus [HIV] disease; Z79.899 Other long term (current) drug therapy; Z90.49 Acquired absence of other specified parts of digestive tract; Z91.040 Latex allergy status; Z88.5 Allergy status to narcotic agent

== ENCOUNTER 2020-02-25 10:14 | Emergency (ER) | payer OTHER ==
[~2020-02-25] VITALS: Ht 188 cm; Wt 113.4 kg
[~2020-02-25 10:14] MED LIST changes: +NORCO 5-325 TA1 EAC1 PO; +TESSALON PERLE100 M1 PO
[2020-02-25] MEDS ORDERED: ADVAIR HFA 115-12 G1 INH (10:47)
[2020-02-25 11:13] LABS: ABSOLUTE NEUTROPHILS 2.8 thou/uL (1.4-8.2); BASOPHILS 0.6 % (0.0-2.0); EOSINOPHILS 3.8 % (0.0-3.0); HEMATOCRIT 42.6 % (42.0-52.0); HEMOGLOBIN 14.5 gm/dL (14.0-18.0); LYMPHOCYTES 27.2 % (24.0-44.0); MCH 29.8 pg (26.0-34.0); MCHC 33.9 g/dL (28.0-37.0); MONOCYTES 8.7 % (1.0-8.0); PLATELET COUNT 169 thou/uL (150-400); POLYS 59.7 % (36.0-66.0); RBC 4.85 mil/uL (4.50-6.00); RDW 15.2 % (10.5-14.5); WBC 4.7 thou/uL (4.0-11.0)
[2020-02-25 11:18] LABS: CALCIUM 8.7 mg/dL (8.5-10.1); CREATININE 1.2 mg/dL (0.7-1.3); POTASSIUM 4.1 mmol/L (3.5-5.1)
[2020-02-25 11:24] LABS: ALBUMIN 3.8 g/dL (3.4-5.0); TOTAL BILIRUBIN 0.3 mg/dL (0.2-1.0); TOTAL PROTEIN 7.5 g/dL (6.4-8.2)
[2020-02-25] MEDS ORDERED: NORCO 5-325 TA1 EAC2 PO (12:52)
[2020-02-25] MEDS ORDERED: TESSALON PERLE100 MG PO (12:52)
[2020-02-25] MEDS ORDERED: PREDNISONE 20 M20 MG PO (12:54)
[2020-02-25 12:59] VITALS: BP 138/72
== END 2020-02-25 12:59 | disposition home or self-care (01) ==
LOC: ER 10:14
PROVIDERS: Student in an Organized Health Care Education/Training Program
DX: R05 Cough (principal); R06.02 Shortness of breath; Z21 Asymptomatic human immunodeficiency virus [HIV] infection status; Z90.49 Acquired absence of other specified parts of digestive tract; Z79.899 Other long term (current) drug therapy; Z88.5 Allergy status to narcotic agent; Z91.040 Latex allergy status; Z20.828 Contact with and (suspected) exposure to other viral communicable diseases

== ENCOUNTER 2020-05-21 12:23 | Emergency (ER) | payer OTHER ==
[~2020-05-21] VITALS: Ht 188 cm; Wt 113.4 kg
[~2020-05-21 12:23] MED LIST changes: +ADVAIR HFA 115-12 G1 INH; +NORCO 5-325 TA1 EAC2 PO; +PREDNISONE 20 M20 MG PO; +TESSALON PERLE100 MG PO
[2020-05-21 12:37] LABS: URINE BILIRUBIN NEGATIVE (Negative); URINE BLOOD NEGATIVE (Negative); URINE CLARITY CLEAR; URINE COLOR YELLOW; URINE GLUCOSE-RANDOM* NEGATIVE (Negative); URINE KETONES NEGATIVE (Negative); URINE LEUKOCYTES-REFLEX NEGATIVE (Negative); URINE NITRITE-REFLEX NEGATIVE (Negative); URINE PROTEIN (DIPSTICK) NEGATIVE (Negative); URINE SPECIFIC GRAVITY >= 1.030 (1.005-1.035); URINE UROBILINOGEN 0.2 E.U./dl (0.2-1.0)
[2020-05-21] MEDS ORDERED: IBUPROFEN 800800 M1 PO (15:09)
[2020-05-21 16:26] VITALS: BP 142/79
== END 2020-05-21 16:27 | disposition home or self-care (01) ==
LOC: ER 12:23
PROVIDERS: Emergency Medicine; Physician Assistant
DX: K40.90 Unilateral inguinal hernia, without obstruction or gangrene, not specified as recurrent (principal); N50.812 Left testicular pain; Z90.49 Acquired absence of other specified parts of digestive tract; Z79.899 Other long term (current) drug therapy; Z88.5 Allergy status to narcotic agent; Z91.040 Latex allergy status

== ENCOUNTER 2021-05-29 08:51 | Emergency (ER) | payer OTHER ==
[~2021-05-29] VITALS: Ht 188 cm; Wt 99.8 kg
[~2021-05-29 08:51] MED LIST changes: +IBUPROFEN 800800 M1 PO
[2021-05-29] MEDS ORDERED: PROTONIX40 M4 PO (09:02)
[2021-05-29] MEDS ORDERED: ATIVAN2 MG PO (09:03)
[2021-05-29] MEDS ORDERED: DIAZEPAM 5 MG5 M1 PO (09:32)
[2021-05-29 09:45] VITALS: BP 113/68
--- NOTE | 2021-05-30 07:35 | EKG ---
[place] [address] [facility] [place] [address] ELECTROCARDIOGRAM REPORT Name: MASOOD LOPEZ [facility] [id number] Admission: 05/29/21 Attend Phys: Discharge: 05/29/21 Date of : 82 Report #: [id number] [facility] ED Test Date: 2021-05-29 Test Time: 09:05:11 Pat Name: MASOOD LOPEZ Department: Room: Gender: Search Engine Optimization Strategist: YUDITH : 1980 Requested By: Moses Ramirez Order Number: [id number] MD: Benji Mendoza Measurements Intervals [place] Rate: 90 P: 1 [place]: 145 QRS: 32 QRSD: 101 T: 42 QT: 363 QTc: 444 Interpretive Statements Sinus rhythm Borderline T abnormalities, anterior leads Compared to ECG 02/04/2020 21:15:12 T-wave abnormality now present Electronically Signed On 05-30-2021 7:35:27 CDT by Benji Mendoza [email or web address] <ELECTRONICALLY SIGNED> By: Benji Mendoza MD, [facility] 05/30/21 0735 4 09 Benji Mendoza MD, FACRick /EPI
== END 2021-05-29 09:54 | disposition home or self-care (01) ==
LOC: ER 08:51
DX: F12.23 Cannabis dependence with withdrawal (principal); F41.9 Anxiety disorder, unspecified; F32.9 Major depressive disorder, single episode, unspecified; Z21 Asymptomatic human immunodeficiency virus [HIV] infection status; Z90.49 Acquired absence of other specified parts of digestive tract; Z79.899 Other long term (current) drug therapy; Z79.891 Long term (current) use of opiate analgesic; Z88.5 Allergy status to narcotic agent; Z91.040 Latex allergy status